=== PATIENT | female | born 2000 | race Caucasian/White ===

== ENCOUNTER 2021-08-25 17:21 | Emergency (ER) | payer OTHER ==
[~2021-08-25] VITALS: Ht 167.6 cm; Wt 46.7 kg
[2021-08-25 17:40] VITALS: BP 115/67
--- NOTE | 2021-08-25 17:51 | NUR ---
TENT1
[2021-08-25] MEDS ORDERED: PROM118S5 PO (18:24)
[2021-08-25] MEDS ORDERED: PHEN177S23 PO (18:24)
[2021-08-25] MEDS ORDERED: PRED20TA5 PO (18:24)
[2021-08-25] MEDS ORDERED: NAPR-54 PO (18:24)
--- NOTE | 2021-08-25 18:48 | NUR ---
Patient discharged with v/s stable. Written and verbal after care instructions given and explained. Patient alert, oriented and verbalized understanding of instructions. Ambulatory with steady gait. All questions addressed prior to discharge. ID band removed. Patient advised to follow up with PMD. Rx of NAPROXEN, PREDNISONE, PHENOL, AND PROMETHAZINE-DM SYRUP given. Patient educated on indication of medication including possible reaction and side effects. Opportunity to ask questions provided and answered.
--- NOTE | 2021-08-25 18:48 | NUR ---
PCR COLLECTED AND HANDED TO [employer]
[2021-08-25 18:50] VITALS: BP 115/67
== END 2021-08-25 18:48 | disposition home or self-care (01) ==
LOC: MED 17:21
DX: B34.9 Viral infection, unspecified (principal); Z20.822 Contact with and (suspected) exposure to COVID-19; J45.909 Unspecified asthma, uncomplicated; Z79.899 Other long term (current) drug therapy
CPT/HCPCS: 71045; 99284; U0003

== ENCOUNTER 2021-10-19 07:59 | Emergency (ER) | payer OTHER ==
[~2021-10-19] VITALS: Ht 167.6 cm; Wt 45.4 kg
[~2021-10-19 07:59] MED LIST: NAPR-54 PO; PHEN177S23 PO; PRED20TA5 PO; PROM118S5 PO
[2021-10-19 08:07] VITALS: BP 113/68
--- NOTE | 2021-10-19 08:33 | NUR ---
RT AT BEDSIDE
[2021-10-19] MEDS ORDERED: IBUPROFEN 600 MG TAB PO ONE (08:35)
[2021-10-19] MEDS ORDERED: MAGN1.7529 PO (09:32)
[2021-10-19] MEDS ORDERED: IBUP-2213 PO (09:34)
--- NOTE | 2021-10-19 09:51 | NUR ---
Patient discharged with v/s stable. Written and verbal after care instructions given CONSTIPATIION and explained. Patient alert, oriented and verbalized understanding of instructions. Ambulatory with steady gait. All questions addressed prior to discharge. ID band removed. Patient advised to follow up with PMD. Rx of IBUPROFEN & MAGNESIUM CITRATE given. Patient educated on indication of medication including possible reaction and side effects. Opportunity to ask questions provided and answered.
== END 2021-10-19 09:51 | disposition home or self-care (01) ==
LOC: MED 07:59
DX: K59.00 Constipation, unspecified (principal); J45.909 Unspecified asthma, uncomplicated; Z79.899 Other long term (current) drug therapy
CPT/HCPCS: 74018; 81025; 99284

== ENCOUNTER 2023-04-02 13:26 | Emergency (ER) | payer OTHER ==
[~2023-04-02] VITALS: Ht 170.2 cm; Wt 45.1 kg
[~2023-04-02 13:26] MED LIST changes: +IBUP-2213 PO; +MAGN296S70 PO
[2023-04-02 13:36] VITALS: BP 123/75; PULSE 72; RESP 18; TEMP 97.9; O2SAT 98
[2023-04-02] MEDS ORDERED: NAPR-1704 PO (14:47)
[2023-04-02] MEDS ORDERED: LID5T TP (14:47)
[2023-04-02 14:50] VITALS: BP 123/75; PULSE 72; RESP 18; TEMP 97.9; O2SAT 98
== END 2023-04-02 14:50 | disposition home or self-care (01) ==
LOC: MED 13:26
DX: S63.501A Unspecified sprain of right wrist, initial encounter (principal); J45.909 Unspecified asthma, uncomplicated; Z79.899 Other long term (current) drug therapy; V89.2XXA Person injured in unspecified motor-vehicle accident, traffic, initial encounter; Y93.89 Activity, other specified; Y92.488 Other paved roadways as the place of occurrence of the external cause; Y99.8 Other external cause status
CPT/HCPCS: 73110; 99283

== ENCOUNTER 2023-07-03 17:22 | Emergency (ER) | payer OTHER ==
[~2023-07-03] VITALS: Ht 170.2 cm; Wt 45.8 kg
[~2023-07-03 17:22] MED LIST changes: +LID5T TP; +NAPR-1704 PO
[2023-07-03 17:48] VITALS: BP 112/70; PULSE 96; RESP 18; TEMP 98; O2SAT 100
[2023-07-03] MEDS ORDERED: ALBUTEROL SULFATE/IPRATROPIU 3 ML SOL IH ONE (17:50)
[2023-07-03] MEDS ORDERED: DEXAMETHASONE 10 MG/ML VIAL IM ONE (18:15)
[2023-07-03 18:51] VITALS: PULSE 86; RESP 16; O2SAT 99
[2023-07-03] MEDS ORDERED: ACET-2619 PO (19:10)
[2023-07-03] MEDS ORDERED: IBUP-2213 PO (19:10)
[2023-07-03 19:29] VITALS: BP 115/70; PULSE 88; RESP 18; TEMP 98; O2SAT 100
== END 2023-07-03 19:29 | disposition home or self-care (01) ==
LOC: MED 17:22
DX: R07.89 Other chest pain (principal); Z79.899 Other long term (current) drug therapy
CPT/HCPCS: 71045; 81025; 93005; 94640; 96372; 99283; J1100